=== PATIENT | female | born 2000 ===

== ENCOUNTER 2019-11-15 01:07 | Emergency (ER) ==
[2019-11-15] MEDS ORDERED: ACETAMINOPHEN 325 MG TABLET PO ONE (01:52)
--- NOTE | 2019-11-15 02:31 | RADIOLOGY REPORT (SQ) ---
EXAM DESCRIPTION: XR HAND 3 OR MORE VIEWS COMPLETED DATE/TME: 11/15/2019 00:00 CLINICAL HISTORY: 19 years, Female, bone pain COMPARISON: None. NUMBER OF VIEWS: Three TECHNIQUE: Three views of the right hand LIMITATIONS: None. FINDINGS: There is a mildly displaced fracture through the neck of the fifth metacarpal with mild dorsal apex angulation. No other fracture is identified. There is mild soft tissue swelling around the fracture site. No radiopaque foreign body. IMPRESSION: Mildly displaced fracture involving the fifth metacarpal copyright 2010 [employer]- All Rights Reserved
== END 2019-11-15 04:15 | disposition left against medical advice (07) ==
LOC: ER 01:07
DX: Z53.21 Procedure and treatment not carried out due to patient leaving prior to being seen by health care provider (principal); S69.91XA Unspecified injury of right wrist, hand and finger(s), initial encounter; X58.XXXA Exposure to other specified factors, initial encounter